=== PATIENT | male | born 1955 | race Caucasian/White ===

== ENCOUNTER → 2018-10-31 16:25 | Outpatient (CLI) | payer MEDICARE, MEDICAID, SELFPAY ==
--- NOTE | 2018-10-31 16:41 | RAD_ITS ---
STUDY: X-RAY - RIGHT SHOULDER REASON FOR EXAM: Male, 62 years old. Multifocal joint pain for a long time, history of many falls TECHNIQUE: 4 view(s) of the shoulder. COMPARISON: None. FINDINGS: Normal glenohumeral articulation. There is degenerative arthrosis of the acromioclavicular joint without inferior osseous spur formation. Normal acromion. There is demineralization of the humerus and visualized osseous structures. There are old right rib fractures. Right apical pleural fibrotic thickening noted. There is right apical pleural and parenchymal fibrotic thickening. RAD/Shoulder min 2 Views IMPRESSION: 1. No acute fracture. 2. Severe osteoarthrosis. 3. Old right rib fractures. Electronically Signed: Figueroa Garcia MD at 10:31 EST , Service support ,
--- NOTE | 2018-10-31 16:42 | RAD_ITS ---
STUDY: X-RAY - BILATERAL HIPS WITHOUT PELVIS REASON FOR EXAM: Male, 62 years old. Pain in joints TECHNIQUE: 2 views of the right hip, and 2 views of the left hip were obtained. COMPARISON: None. FINDINGS: Narrowing of both hip joints but no acute fractures or dislocations. The sacroiliac joints are normal. 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 Left protrusio acetabuli. No acute fracture Electronically Signed: Ruslan Márquez MD at 7:02 EST Tel , Service support ,
--- NOTE | 2018-10-31 16:43 | RAD_ITS ---
STUDY: X-RAY - LUMBAR SPINE REASON FOR EXAM: Male, 62 years old. Multifocal joint pain with history of multiple falls TECHNIQUE: 3 view(s) of the lumbar spine were obtained. COMPARISON: None FINDINGS: Normal lumbar lordosis. There is a levoscoliosis of the lumbar spine. There is a normal alignment of the vertebrae. There is generalized demineralization of the vertebral bodies. There is loss of disc space at L5-S1 with moderate multilevel facet arthropathy. IVC filter is noted (potentially retrievable type). Mild compression deformity of T12 is identified involving the superior endplate and minimal buckling of the anterior vertebral body cortex. Assessment for compression fracture in the mid lumbar spine limited due to scoliosis but no obvious significant compression is seen. Surgical sutures project over the sacrum/sacroiliac joints on frontal view. Circumferential joint space narrowing of bilateral hips. RAD/Lumbar Spine 2 or 3 Views IMPRESSION: 1. Facet dominant degenerative changes throughout the lumbar spine. Mild levoscoliosis. 2. T12 compression fracture (mild) of indeterminate age. 3. Potentially retrievable IVC filter. Electronically Signed: Figueroa Garcia MD at 10:34 EST , Service support ,
--- NOTE | 2018-10-31 16:43 | RAD_ITS ---
STUDY: X-RAY - CERVICAL SPINE REASON FOR EXAM: Male, 62 years old. Multifocal degenerative pain for a long time TECHNIQUE: 3 view(s) of the cervical spine were obtained. COMPARISON: None FINDINGS: Normal anterior atlantoaxial articulation. Normal odontoid process. Normal cervical lordosis. There is diffuse demineralization of the cervical spine. There is anterolisthesis of C4 in relation to C5 measuring 3 mm, limited in detail. Severe multilevel disc space narrowing most conspicuous at C4-C5, C5-C6 and C6-C7. Severe multilevel facet arthropathy also demonstrated in the mid to lower lumbar spine. Anterior spondylosis identified at multiple levels. Pleural/parenchymal fibrotic thickening in the bilateral lung apices noted. RAD/Cerv Spine 2 or 3 Views IMPRESSION: 1. Severe multilevel degenerative disc disease and facet arthropathy. Degenerative anterolisthesis of C4 on C5 is limited in assessment on x-ray. Evaluation with CT myelogram or MRI suggested. Electronically Signed: Figueroa Garcia MD at 10:38 EST , Service support ,
--- NOTE | 2018-10-31 16:44 | RAD_ITS ---
STUDY: X-RAY - THORACIC SPINE REASON FOR EXAM: Male, 62 years old. Multifocal joint pain with history of multiple prior falls TECHNIQUE: 3 view(s) of the thoracic spine were obtained. COMPARISON: None. FINDINGS: There is an increase in the normal thoracic kyphosis. There is S-shaped scoliosis of the thoracolumbar spine. There is demineralization of the thoracic spine with endplate spondylosis. There is multilevel disc space narrowing of the thoracic spine. There are multiple compression fractures with severe compression deformities in the mid thoracic spine, approximately T7, T8 and T9. Mild compression deformity of T3 also felt to be present. Compression deformity may be exaggerated by degree of scoliosis. Potentially retrievable IVC filter noted. RAD/Thoracic Spine 3 Views IMPRESSION: 1. Multilevel compression fractures, unknown age. 2. Scoliosis. Electronically Signed: Figueroa Garcia MD at 10:41 EST , Service support ,
--- NOTE | 2018-10-31 16:47 | RAD_ITS ---
STUDY: X-RAY - LEFT SHOULDER REASON FOR EXAM: Male, 62 years old. Multifocal joint pain with history of multiple recent falls TECHNIQUE: 4 view(s) of the shoulder. COMPARISON: None. FINDINGS: There is moderate degenerative arthrosis of the glenohumeral articulation with cephalad migration of the humeral head. There is degenerative arthrosis of the acromioclavicular joint without inferior osseous spur formation. Normal acromion. There is demineralization of the humerus and visualized osseous structures. There are old left rib fractures. Pleural parenchymal fibrotic changes in the left apex noted. RAD/Shoulder min 2 Views IMPRESSION: 1. No fracture or malalignment. 2. Moderate osteoarthrosis. 3. Old left rib fractures. Electronically Signed: Figueroa Garcia MD at 10:36 EST , Service support ,
[2018-10-31 19:09] LABS: Amphetamine Urine VISTA NEGATIVE (<1000 ng/mL); Barbiturate Urine VISTA NEGATIVE (< 200 ng/mL); Benzodiazepine Urine VISTA NEGATIVE (< 200 ng/mL); Cocaine Urine VISTA NEGATIVE (< 300 ng/mL); Ecstacy Urine VISTA NEGATIVE (< 500 ng/mL); Methadone Urine VISTA POSITIVE (< 300 ng/mL); PCP Urine VISTA NEGATIVE (< 25 ng/mL); THC Urine VISTA NEGATIVE (< 50 ng/mL); Vista UDS pH Range 7
== END ==
PROVIDERS: Referring Provider Anesthesiology; Visit Provider Anesthesiology
DX: M54.2 Cervicalgia (principal); F11.20 Opioid dependence, uncomplicated; M25.552 Pain in left hip; M25.551 Pain in right hip; Z91.81 History of falling
CPT/HCPCS: 72040; 72072; 72100; 73030; 73521; 80307